=== PATIENT | male | born 1975 | race African-American/Black ===

== ENCOUNTER 2023-05-19 00:11 | Emergency (ER) | payer MEDICAID, OTHER ==
[~2023-05-19] VITALS: Ht 172.7 cm; Wt 89.0 kg
[~2023-05-19 00:11] MED LIST: DIPH25CA83 PO; METH4TAB17 PO; OMEP40CA20 PO
[2023-05-19 00:18] VITALS: PULSE 103
[2023-05-19 00:26] VITALS: BP 144/98; RESP 18; TEMP 98.4; O2SAT 100
[2023-05-19] MEDS ORDERED: SODIUM CHLORIDE 0.9% 1,000 ML IV ONE ×2 (02:00)
[2023-05-19 02:07] LABS: BASOPHILS % 0.7 % (0.0-2.0); EOSINOPHILS % 1.5 % (0.0-5.0); HEMATOCRIT. 45.5 % (42.0-52.0); HEMOGLOBIN. 15.9 g/dL (14.0-18.0); LYMPHOCYTES % 32.8 % (20.0-50.0); MEAN CORPUSCULAR HEMOGLOBIN 30.9 pg (28.0-32.0); MEAN CORPUSCULAR HGB CONC 34.9 g/dL (31.0-37.0); MEAN CORPUSCULAR VOLUME 88.5 fL (80.0-94.0); MEAN PLATELET VOLUME 8.6 fl (7.4-10.4); MONOCYTES % 5.8 % (2.0-8.0); NEUTROPHILS % 59.2 % (40.0-76.0); PLATELET 326 x1000/uL (130-400); RED BLOOD CELL COUNT 5.15 mill/uL (4.7-6.1); RED CELL DISTRIBUTION WIDTH 13.1 % (11.6-14.6); WHITE BLOOD COUNT 9.6 x1000/uL (4.5-11.0)
[2023-05-19 02:15] LABS: CHLORIDE 101 mEq/L (98-107); INDEX HEMOLYSI 3 (1-3); INDEX ICTERIC 1 (1-4); INDEX LIPEMIC 1 (1-3); POTASSIUM 4.5 mEq/L (3.5-5.1); SODIUM 133 mEq/L (136-145)
[2023-05-19 02:21] LABS: ALANINE AMINOTRANSFERASE 52 IU/L (13-61); ASPARTATE AMINOTRANSFERASE 20 IU/L (15-37); BETA HYDROXYBUTYRATE 1.8 mMol/L (0.0-0.3); BILIRUBIN TOTAL 0.5 mg/dL (0.1-1.0); CARBON DIOXIDE 24 mEq/L (21-32); CREATININE 0.9 mg/dL (0.6-1.3); UREA NITROGEN BLOOD 18 mg/dL (7-21)
[2023-05-19 02:44] LABS: GLUCOSE 448 mg/dL (70-105)
[2023-05-19] MEDS ORDERED: INSULIN LISPRO 100 UNITS/ML SUBCUT SCH (07:00)
== END 2023-05-19 08:45 | disposition home or self-care (01) ==
LOC: ER 00:11
DX: E11.65 Type 2 diabetes mellitus with hyperglycemia (principal); I10 Essential (primary) hypertension
CPT/HCPCS: 80053; 82010; 82962; 83605; 85025; 36415; 96360; 96372; 99283; J1815; J7030; Z7610 ×2